=== PATIENT | female | born 1945 | race Caucasian/White ===

== ENCOUNTER 2018-12-28 22:12 | Inpatient (IN) | payer MEDICARE ==
[~2018-12-28] VITALS: Ht 157.5 cm; Wt 79.5 kg
[2018-12-28] MEDS ORDERED: IV RINGERS SOLUTION,LACTATED 1,000 ML IV ONE (22:25)
--- NOTE | 2018-12-28 22:50 | RAD ---
Exam: CT head INDICATION: Slurred speech TECHNIQUE: Sequential axial images through the head were obtained without the administration of IV contrast. Comparisons: None FINDINGS: No focal parenchymal lesion or hemorrhage is identified. There is no midline shift or sulcal effacement. No acute vascular territory infarction is identified. Tamayo-white distinction is preserved. The ventricular system is within normal limits without compression hydrocephalus. The basal cisterns are well maintained. The visualized portions of the paranasal sinuses and mastoid air cells are well-pneumatized. No acute fractures. IMPRESSION: No acute intracranial abnormality. Exposure: One or more of the following in the visualized dose reduction techniques were utilized for this examination: 1. Automated exposure control 2. Adjustment of the MA and/or KV according to patient size Use of iterative of reconstructive technique FOR INTERNAL CODING PURPOSES Critical result: Findings discussed with Kayla Angel RN at 12/28/2018 10:45 PM. RESULT CODE: (C) Electronically signed by: Jaison Mustafa MD (12/28/2018 10:47 PM) [facility]
[2018-12-28 22:55] LABS: HEMOGLOBIN 14.6 g/dL (12.0-15.5); RED BLOOD COUNT 5.01 x10^6/uL (3.50-5.40); RED CELL DISTRIBUTION WIDTH 14.4 % (11.5-14.5)
--- NOTE | 2018-12-28 22:55 | EKG ---
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
[2018-12-28 23:13] LABS: GFR 54.7; POTASSIUM 4.2 mmol/L (3.5-5.1)
[2018-12-28] MEDS ORDERED: ENOXAPARIN ** NOTE DOSE ** SYRINGE SQ ONE (23:45)
--- NOTE | 2018-12-28 23:45 | RAD ---
CHEST PA LATERAL Technique: PA and lateral views of the chest were obtained. Clinical History: A. Fib weakness and dizziness Comparison: None. Findings: The heart and pulmonary vasculature appear within normal limits. There is linear opacities in left lung base likely discoid atelectasis. The lungs are hyperinflated. The pleural margins are clear. Impression: No acute chest process is seen. Electronically signed by: Baltazar Strickland III, MD (12/28/2018 11:42 PM) [facility]
[2018-12-29] MEDS ORDERED: ACETAMINOPHEN 325 MG TABLET PO PRN
[2018-12-29] MEDS ORDERED: ONDANSETRON PF 4 MG/2 ML VIAL. IV PRN
[2018-12-29] MEDS ORDERED: ANTI-COAG MONITOR BY PHARMACY. MC PRN (00:15)
--- NOTE | 2018-12-29 01:10 | ED.ADGEN ---
Past History Past Medical History: A-Fib Past Surgical History: No Surgical History Alcohol Use: None Drug Use: None Adult General Chief Complaint Chief Complaint ".... I had been out on the town....Just taken a hot shower and I was talking on the phone with my friend.. and all sudden I had slurred speech... my friend noticed it... and everyone said I should come in.. It only lasted a few minutes.. I am back to normal now.. I do have a hx of Afib... but I am not on anything for it.... HPI HPI Patient is a 77 year old female who presents with transient episode of slurred speech. Patient states she was talking on the phone when she developed acute surgical procedure which was recognizable by her friend. She does have a history of A. fib for approximately 10 years but does not take any anticoagulants. Patient did state she took 2 aspirins at home before presenting to the emergency department. Patient normally follows with Dr. Mansfield and Dr. De Los Santos. No recent travel, specific ill contacts or changes in diet or meds. Patient has not had previous episodes of TIA or CVAs. Her NIH 0 on arrival to ED. Friend with her advised she was back to normal speech pattern. She does give a history of prior elevation in d-dimer but no pulmonary embolism or DVT was found on workup Review of Systems Review of Systems Constitutional: Denies fever or chills [] Eyes: Denies change in visual acuity, redness, or eye pain [] HENT: Denies nasal congestion or sore throat [] Respiratory: Denies cough or shortness of breath [] Cardiovascular: No additional information not addressed in HPI [] GI: Denies abdominal pain, nausea, vomiting, bloody stools or diarrhea [] : Denies dysuria or hematuria [] Musculoskeletal: Denies back pain or joint pain [] Integument: Denies rash or skin lesions [] Neurologic: Denies headache, focal weakness or sensory changes. Complaints of transient episode of slurred speech Endocrine: Denies polyuria or polydipsia [] All other systems were reviewed and found to be within normal limits, except as documented in this note. Family History Family History Noncontributory Current Medications Current Medications Current Medications Medications (Trade) Dose Ordered Sig/Lon Start Time Stop Time Status Last Admin Dose Admin Lactated Ringer's 1,000 ml @ 1,000 mls/hr Q1H ONCE 12/28/18 22:25 12/28/18 23:24 DC 12/28/18 23:14 1,000 MLS/HR Allergies Allergies Allergies Coded Allergies Type Severity Reaction Last Updated Verified No Known Drug Allergies 12/28/18 No Physical Exam Physical Exam Constitutional: Well developed, well nourished, moderate emotional distress, non-toxic appearance. [] HENT: Normocephalic, atraumatic, bilateral external ears normal, oropharynx moist, no oral exudates, nose normal. [] Eyes: PERRLA, EOMI, conjunctiva normal, no discharge. [] Neck: Normal range of motion, no tenderness, supple, no stridor. [] Cardiovascular: Irregular rate and rhythm ,no murmur [] Lungs & Thorax: Bilateral breath sounds clear to auscultation [] Abdomen: Bowel sounds normal, soft, no tenderness, no masses, no pulsatile masses. [] Skin: Warm, dry, no erythema, no rash. [] Back: No tenderness, no CVA tenderness. [] Extremities: No tenderness, no cyanosis, no clubbing, ROM intact, no edema. [] Neurologic: Alert and oriented X 3, normal motor function, normal sensory function, no focal deficits noted. []DTRs +2 at patella and brachial. No drift. Ambulatory without problems. Psychologic: Affect anxious, judgement normal, mood normal. [] Current Patient Data Vital Signs Vital Signs Date Time Temp Pulse Resp B/P (MAP) Pulse Ox O2 Delivery O2 Flow Rate FiO2 12/28/18 23:30 64 16 110/55 (73) 99 Room Air 12/28/18 22:14 98.0 Lab Results Laboratory Tests Test 12/28/18 22:29 12/28/18 22:30 Glucose (Fingerstick) 133 mg/dL (70-99) H White Blood Count 9.0 x10^3/uL (4.0-11.0) Red Blood Count 5.01 x10^6/uL (3.50-5.40) Hemoglobin 14.6 g/dL (12.0-15.5) Hematocrit 44.0 % (36.0-47.0) Mean Corpuscular Volume 88 fL (79-100) Mean Corpuscular Hemoglobin 29 pg (25-35) Mean Corpuscular Hemoglobin Concent 33 g/dL (31-37) Red Cell Distribution Width 14.4 % (11.5-14.5) Platelet Count 300 x10^3/uL (140-400) Erythrocyte Sedimentation Rate 18 (0-25) Prothrombin Time 9.4 SEC (9.4-11.4) Prothrombin Time INR 0.9 (0.9-1.1) Activated Partial Thromboplast Time 24 SEC (23-33) D-Dimer (Shara) 0.73 mg/L (0.00-0.50) H Sodium Level 142 mmol/L (136-145) Potassium Level 4.2 mmol/L (3.5-5.1) Chloride Level 104 mmol/L (98-107) Carbon Dioxide Level 29 mmol/L (21-32) Anion Gap 9 (6-14) Blood Urea Nitrogen 14 mg/dL (7-20) Creatinine 1.0 mg/dL (0.6-1.0) Estimated GFR (Cockcroft-Gault) 54.7 Glucose Level 112 mg/dL (70-99) H Calcium Level 9.0 mg/dL (8.5-10.1) Troponin I Quantitative < 0.017 ng/mL (0-0.055) EKG EKG I interpretation EKG shows a a A. fib with Vent. rate 75, some nonspecific anterior lateral changes. No findings acute STEMI with contralateral changes Radiology/Procedures Radiology/Procedures [][address] [address] IMAGING REPORT Signed PATIENT: MANNY MARIECOUNT: [id number] : 1945 LOCATION: ER AGE: 73 SEX: F EXAM STATUS: REG ER ORD. PHYSICIAN: NEDRA HAWLEY MD REASON: speech diff, hx afib, not anticoagulated.-(no current deficits) PROCEDURE: CT CODE STROKE HEAD WO Exam: CT head INDICATION: Slurred speech TECHNIQUE: Sequential axial images through the head were obtained without the administration of IV contrast. Comparisons: None FINDINGS: No focal parenchymal lesion or hemorrhage is identified. There is no midline shift or sulcal effacement. No acute vascular territory infarction is identified. Tamayo-white distinction is preserved. The ventricular system is within normal limits without compression hydrocephalus. The basal cisterns are well maintained. The visualized portions of the paranasal sinuses and mastoid air cells are well-pneumatized. No acute fractures. IMPRESSION: No acute intracranial abnormality. Exposure: One or more of the following in the visualized dose reduction techniques were utilized for this examination: 1. Automated exposure control 2. Adjustment of the MA and/or KV according to patient size Use of iterative of reconstructive technique FOR INTERNAL CODING PURPOSES Critical result: Findings discussed with Kayla Angel RN at 12/28/2018 10:45 PM. RESULT CODE: (C) IMAGING REPORT Signed PATIENT: MANNY MARIECOUNT: [id number] : 1945 LOCATION: ER AGE: 73 SEX: F EXAM STATUS: REG ER ORD. PHYSICIAN: NEDRA HAWLEY MD REASON: A-Fib, weakness, dizziness PROCEDURE: CHEST PA & LATERAL CHEST PA LATERAL Technique: PA and lateral views of the chest were obtained. Clinical History: A. Fib weakness and dizziness Comparison: None. Findings: The heart and pulmonary vasculature appear within normal limits. There is linear opacities in left lung base likely discoid atelectasis. The lungs are hyperinflated. The pleural margins are clear. Impression: No acute chest process is seen. Electronically signed by: Evelyn Garza III, MD (12/28/2018 11:42 PM) [facility] DICTATED AND SIGNED BY: EVELYN GARZA III, MD DATE: 12/28/18 2842 CC: NEDRA HAWLEY MD; CHANDANA MABRY MD ~ Course & Med Decision Making Course & Med Decision Making Pertinent Labs and Imaging studies reviewed. (See chart for details) Discussed with pt. and friend risk of possible use to TPA for treatment of CVA. Currently not a candidate with normal neuro exam. Discussed presentation, testing and tx. plan with Dr. Jacobo- will admit for neuro and cardiology consult. [] Final Impression Final Impression 1. TIA 2. A. fib 3. Mild elevation in d-dimer 0.79. [] Dragon Disclaimer Dragon Disclaimer This electronic medical record was generated, in whole or in part, using a voice recognition dictation system. Dragon Disclaimer This chart was dictated in whole or in part using Voice Recognition software in a busy, high-work load, and often noisy Emergency Department environment. It may contain unintended and wholly unrecognized errors or omissions. NEDRA HAWLEY MD Dec 29, 2018 01:10
[2018-12-29 01:30] VITALS: BP 152/92
[2018-12-29 05:29] VITALS: BP 135/68
[2018-12-29 07:11] LABS: BASO # 0.1 x10^3/uL (0.0-0.2); BASO % 1 % (0-3); EOS # 0.4 x10^3/uL (0.0-0.7); EOS % 5 % (0-3); HEMATOCRIT 40.5 % (36.0-47.0); HEMOGLOBIN 13.3 g/dL (12.0-15.5); LYMPH # 2.8 x10^3/uL (1.0-4.8); LYMPH % 33 % (24-48); MEAN CORPUSCULAR HEMOGLOBIN 29 pg (25-35); MEAN CORPUSCULAR HGB CONC 33 g/dL (31-37); MEAN CORPUSCULAR VOLUME 87 fL (79-100); MONO # 0.9 x10^3/uL (0.0-1.1); MONO % 11 % (0-9); NEUT # 4.3 x10^3uL (1.8-7.7); NEUT % 50 % (31-73); PLATELET COUNT 257 x10^3/uL (140-400); RED BLOOD COUNT 4.64 x10^6/uL (3.50-5.40); RED CELL DISTRIBUTION WIDTH 14.3 % (11.5-14.5); WHITE BLOOD COUNT 8.5 x10^3/uL (4.0-11.0)
[2018-12-29 07:21] LABS: CALCIUM 8.3 mg/dL (8.5-10.1); CREATININE 0.8 mg/dL (0.6-1.0); GFR 70.7; POTASSIUM 4.1 mmol/L (3.5-5.1)
[2018-12-29] MEDS: ASPIRIN 81 MG TAB.CHEW PO SCH (08:31)
[2018-12-29] MEDS ORDERED: ENOXAPARIN ** NOTE DOSE ** SYRINGE SQ SCH (09:00)
[2018-12-29 10:45] LABS: THYROID STIM HORMONE (TSH) 8.304 uIU/mL (0.358-3.740)
[2018-12-29 11:41] VITALS: BP 161/71
--- NOTE | 2018-12-29 12:15 | PDOC2 ---
CONSULT Date of Admission DATE: 12/29/18 TIME: 12:15 Reason for Consult: Atrial fibrillation Referring Physician: Dr. Jacobo Chief Complaint Slurred speech Source: Chart review, Patient Problem List Problems Medical Problems: (1) TIA (transient ischemic attack) Status: Acute (2) Weakness Status: Acute History of Present Illness 73-year-old female with history of paroxysmal atrial fibrillation diagnosed several years ago followed by [facility] cardiology presented with sudden onset slurred speech that resolved after she took aspirin. She denied any loss of function as such but she also denied any chest pain, orthopnea/PND, palpitations or syncope. She was apparently on Coumadin for her atrial fibrillation several years ago that she stopped taking for uncertain reasons. Past Medical History Paroxysmal atrial fibrillation Past Surgical History: No pertinent history Family History Negative for premature coronary artery disease Social History Patient denied any smoking alcohol or drug use Current Medications Current Medications Lactated Ringer's 1,000 ml @ 1,000 mls/hr Q1H ONCE IV Last administered on 12/28/18at 23:14; Start 12/28/18 at 22:25; Stop 12/28/18 at 23:24; Status DC Enoxaparin Sodium (Lovenox 80mg Syringe) 80 mg 1X ONCE SQ Last administered on 12/28/18at 23:58; Start 12/28/18 at 23:45; Stop 12/28/18 at 23:46; Status DC Ondansetron HCl (Zofran) 4 mg PRN Q4HRS PRN IV NAUSEA/VOMITING; Start 12/29/18 at 00:00; Stop 12/29/18 at 23:59 Acetaminophen (Tylenol) 650 mg PRN Q4HRS PRN PO FEVER Last administered on 12/29/18at 08:31; Start 12/29/18 at 00:00; Stop 12/29/18 at 23:59 Aspirin (Children'S Aspirin) 81 mg DAILY PO Last administered on 12/29/18at 08:31; Start 12/29/18 at 09:00 Enoxaparin Sodium (Lovenox 80mg Syringe) 80 mg BID SQ Last administered on 12/29/18at 08:32; Start 12/29/18 at 09:00 Info (Anti-Coagulation Monitoring By Pharmacy) 1 each PRN DAILY PRN MC SEE COMMENTS; Start 12/29/18 at 00:15 Allergies: Coded Allergies: No Known Drug Allergies (Unverified , 12/28/18) PSYCHOLOGICAL ROS: No: Hallucinations Eyes: No: Loss of vision HEENT: No: Epistaxis Respiratory: No: Hemoptysis Cardiovascular: No: Chest Pain Gastrointestinal: No: Vomiting, Diarrhea Genitourinary: No: Henaturia Neurological: YES: Speech Problems; No: Seizures Skin: No: Rash General: Alert, Oriented X3 HEENT: Atraumatic, PERRLA Lungs: Clear to auscultation Heart: Other (heart rate irregular) Abdomen: Soft, No tenderness Extremities: No edema Psych/Mental Status: Mood NL VITALS Vital Signs Date Time Temp Pulse Resp B/P (MAP) Pulse Ox O2 Delivery O2 Flow Rate FiO2 12/29/18 11:41 97.7 73 20 161/71 (101) 96 Room Air Labs Laboratory Tests Test 12/28/18 22:29 12/28/18 22:30 12/29/18 06:50 Glucose (Fingerstick) 133 mg/dL (70-99) White Blood Count 9.0 x10^3/uL (4.0-11.0) 8.5 x10^3/uL (4.0-11.0) Red Blood Count 5.01 x10^6/uL (3.50-5.40) 4.64 x10^6/uL (3.50-5.40) Hemoglobin 14.6 g/dL (12.0-15.5) 13.3 g/dL (12.0-15.5) Hematocrit 44.0 % (36.0-47.0) 40.5 % (36.0-47.0) Mean Corpuscular Volume 88 fL (79-100) 87 fL (79-100) Mean Corpuscular Hemoglobin 29 pg (25-35) 29 pg (25-35) Mean Corpuscular Hemoglobin Concent 33 g/dL (31-37) 33 g/dL (31-37) Red Cell Distribution Width 14.4 % (11.5-14.5) 14.3 % (11.5-14.5) Platelet Count 300 x10^3/uL (140-400) 257 x10^3/uL (140-400) Erythrocyte Sedimentation Rate 18 (0-25) Prothrombin Time 9.4 SEC (9.4-11.4) Prothromb Time International Ratio 0.9 (0.9-1.1) Activated Partial Thromboplast Time 24 SEC (23-33) D-Dimer (Shara) 0.73 mg/L (0.00-0.50) Sodium Level 142 mmol/L (136-145) 143 mmol/L (136-145) Potassium Level 4.2 mmol/L (3.5-5.1) 4.1 mmol/L (3.5-5.1) Chloride Level 104 mmol/L (98-107) 110 mmol/L (98-107) Carbon Dioxide Level 29 mmol/L (21-32) 26 mmol/L (21-32) Anion Gap 9 (6-14) 7 (6-14) Blood Urea Nitrogen 14 mg/dL (7-20) 11 mg/dL (7-20) Creatinine 1.0 mg/dL (0.6-1.0) 0.8 mg/dL (0.6-1.0) Estimated GFR (Cockcroft-Gault) 54.7 70.7 Glucose Level 112 mg/dL (70-99) 110 mg/dL (70-99) Calcium Level 9.0 mg/dL (8.5-10.1) 8.3 mg/dL (8.5-10.1) Troponin I Quantitative < 0.017 ng/mL (0-0.055) Triglycerides Level 168 mg/dL (0-150) Cholesterol Level 212 mg/dL (0-200) LDL Cholesterol, Calculated 140 mg/dL (0-100) VLDL Cholesterol, Calculated 33 mg/dL (0-40) Non-HDL Cholesterol Calculated 173 mg/dL (0-129) HDL Cholesterol 39 mg/dL (40-60) Cholesterol/HDL Ratio 5.0 Thyroid Stimulating Hormone (TSH) 8.304 uIU/mL (0.358-3.740) Neutrophils (%) (Auto) 50 % (31-73) Lymphocytes (%) (Auto) 33 % (24-48) Monocytes (%) (Auto) 11 % (0-9) Eosinophils (%) (Auto) 5 % (0-3) Basophils (%) (Auto) 1 % (0-3) Neutrophils # (Auto) 4.3 x10^3uL (1.8-7.7) Lymphocytes # (Auto) 2.8 x10^3/uL (1.0-4.8) Monocytes # (Auto) 0.9 x10^3/uL (0.0-1.1) Eosinophils # (Auto) 0.4 x10^3/uL (0.0-0.7) Basophils # (Auto) 0.1 x10^3/uL (0.0-0.2) Assessment/Plan 1. Atrial fibrillation: Heart rate very well controlled without any rate lowering medications. Start eliquis for stroke prophylaxis and consider outpatient cardioversion in 3-4 weeks. Check 2-D echo to assess LV function and Lexiscan nuclear stress test to rule out ischemia possibly as an outpatient. 2. TIA: Probably secondary to atrial fibrillation. CT scan of head did not show any acute intracranial process. Carotid arterial duplex scan did not show any significant stenosis. Consider neurology consultation. Thank you for your consult. NURYS CARDENAS MD Dec 29, 2018 12:15
--- NOTE | 2018-12-29 14:01 | RAD ---
EXAM: Bilateral lower extremity venous Doppler. HISTORY: Bilateral lower extremity pain/swelling. Elevated d-dimer. COMPARISON: None. FINDINGS: Grayscale and Doppler analysis of the both lower extremity deep venous systems was performed with graded compression and augmentation. The common femoral, greater saphenous, superficial femoral, popliteal and calf veins were assessed. There is no evidence of deep venous thrombosis. IMPRESSION: 1. No evidence of deep venous thrombosis. Electronically signed by: Lisy Cruz MD (12/29/2018 1:58 PM) [facility]
--- NOTE | 2018-12-29 14:48 | RAD ---
EXAM: Carotid Doppler sonogram. HISTORY: Transient ischemic attack. TECHNIQUE: Tamayo scale and color Doppler sonographic evaluation of the neck with spectral waveform analysis was performed and static images are submitted for review. FINDINGS: The peak systolic velocity within the right common carotid artery is 76 cm/sec. The peak systolic velocity within the right internal carotid artery is 93 cm/sec and the end diastolic velocity within the right internal carotid artery is 28 cm/sec. The right ICA/CCA ratio is 1.22. The peak systolic velocity within the left common carotid artery is 95 cm/sec. The peak systolic velocity within the left internal carotid artery is 85 cm/sec and the end diastolic velocity within the left internal carotid artery is 30 cm/sec. The left ICA/CCA ratio is 0.89. There is normal antegrade flow within both vertebral arteries. IMPRESSION: No Doppler evidence of hemodynamically significant stenosis within the carotid or vertebral arteries. PQRS Compliance Statement - Stenosis calculations for CT, MR and conventional angiography are based upon measurement of the distal ICA diameter in accordance with the NASCET methodology. Stenosis calculations for carotid ultrasound studies are derived from validated velocity criteria which are known to correlate with the NASCET methodology. Electronically signed by: Melania Gonzalez MD (12/29/2018 2:46 PM) [facility]
[2018-12-29 15:17] VITALS: BP 125/73
--- NOTE | 2018-12-29 19:01 | HP ---
ADMIT DATE: 12/28/2018 HISTORY OF PRESENT ILLNESS: The patient is a 73-year-old female patient who presented with a transient episode of slurring of her speech. She stated that she was talking on the phone when she developed acute slurring of her speech. It was recognizable by her friend. She does have a history of atrial fibrillation for approximately 10 years. She has not been taking any anticoagulant. She stated that she took 2 aspirins at home before she presented to the Emergency Room. She normally follows with Dr. Irizarry and Dr. Stoner. Denied any recent travel, specific ill contact or change in her diet or medication. She has never had any episode of TIA or CVA. Her NIH score was only 0 on arrival to the Emergency Department. Her friend with her advised her to come to the Emergency Room. She does have a history of elevation of D-dimer before, but no pulmonary embolism or DVT was found on her workup. She was evaluated in the Emergency Room and her EKG showed that she was in AFib with controlled heart rate, was 75 beats per minute with nonspecific anterolateral changes and no finding of acute ST segment elevation or with contralateral changes. She had a CT scan of the head, which showed that she has no focal parenchymal lesion or hemorrhage identified. There is no midline shift or sulcal effacement, no acute vascular territory infarction identified. Swift white distinction is preserved. The ventricular system is within normal limits without compression hydrocephalus. The basal cisterns are well maintained. Visualized portion of the paranasal sinuses and mastoid air cells are well pneumatized. No acute fracture. The patient was admitted to consult the Cardiology as well as Neurology team. PAST MEDICAL HISTORY: Significant for atrial fibrillation. She stated that she was told that she has hyperlipidemia and possible PFO. PAST SURGICAL HISTORY: Significant for tonsillectomy, total abdominal hysterectomy, bilateral salpingo-oophorectomy, left rotator cuff repair and left heart catheterization. ALLERGIES: She has no known drug allergies. MEDICATIONS: She is currently on no medication by prescription or otherwise. FAMILY HISTORY: She has 1 younger sister who is healthy. Her father at the age of 90. Mother at age of 47 because of stomach cancer. SOCIAL HISTORY: She is and she has 3 sons and 2 daughters. She never smoked, never drank alcohol, never used any drugs. 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 PHYSICAL EXAMINATION: GENERAL: On arrival to the Emergency Room, the patient looked well and was clearly in no apparent respiratory distress, somewhat pale, no jaundice, cyanosis, or thyromegaly. No jugular venous distension. No lower limb edema. VITAL SIGNS: Heart rate on arrival was 101, regularly irregular, blood pressure was 138/75, temperature was 98, respiratory rate 20, and oxygen saturation was 98% on room air. HEAD, EYES, EARS, NOSE AND THROAT: Showed normocephalic, atraumatic. NECK: Supple. HEART: Showed normal first and second heart sounds. No gallop or murmur. CHEST: Clear to auscultation. No crepitation or rhonchi. ABDOMEN: Distended, soft, nontender. NEUROLOGIC: She was awake, alert, responding appropriately. All cranial nerves intact. She moves extremities without difficulty. She ambulates without assistance or assistive devices. By the time she arrived to the Emergency Room, her slurring of speech has completely resolved. LABORATORY DIAGNOSTIC DATA: Her lab work on arrival showed that her serum sodium was 142, potassium 4.2, chloride 104, bicarbonate 29, anion gap of 9, BUN 14, creatinine 1, estimated GFR was 54 mL per minute. Her glucose was 112, calcium was 9. Her white cell count was 9000, hemoglobin 14.6, hematocrit 44, MCV 88 and platelet count of 300,000. Her prothrombin time, INR and aPTT were normal. Her D-dimer was slightly elevated at 0.73. Her first set of cardiac enzymes showed troponin to be less than 0.017. She did have also her fasting lipid profile, which showed that her serum triglycerides were 168, total cholesterol was 212, LDL cholesterol 140, VLDL was 33, HDL was 39, the ratio 5. TSH was high at 8.304. She did have a CT scan of the head, which basically showed that there is no focal parenchymal lesion or hemorrhage identified. There is no midline shift or sulcal effacement, no acute vascular territory infarction identified. Swift white distinction is preserved. The ventricular system is within normal limits without compression hydrocephalus. The basal cisterns are well maintained. The visualized portions of the paranasal sinuses and mastoid air cells are well pneumatized. No acute fracture. She has had a chest x-ray, which showed that the heart and pulmonary vasculature appeared within normal limits. There is linear opacities in the left lung base, likely discoid atelectasis. The lungs are hyperinflated. The pleural margins are clear. PLAN: The patient was admitted to do 2 more sets of cardiac enzyme, to consult the pigment pusher as well as the neurologist and also to arrange for her to have a carotid Doppler ultrasound and bilateral lower extremity venous Doppler ultrasound. URMILA FLEMING MD DR: ERLIN/kirt JOB#: [id number] / [id number]
[2018-12-29 20:02] VITALS: BP 134/69
[2018-12-29] MEDS: APIXABAN 5 MG TABLET. PO SCH (20:21)
[2018-12-29 23:26] VITALS: BP 145/69
[2018-12-30 05:32] VITALS: BP 128/72
[2018-12-30 06:54] LABS: CALCIUM 8.6 mg/dL (8.5-10.1); CREATININE 0.8 mg/dL (0.6-1.0); GFR 70.7; POTASSIUM 4.2 mmol/L (3.5-5.1)
[2018-12-30] MEDS: ASPIRIN 81 MG TAB.CHEW PO SCH (07:46)
[2018-12-30] MEDS: APIXABAN 5 MG TABLET. PO SCH (07:47)
[2018-12-30] MEDS ORDERED: METOPROLOL TART IMMED RELEASE 25 MG TABLET PO SCH (09:00)
--- NOTE | 2018-12-30 09:08 | PDOC ---
CARDIO Progress Notes Date & Time Date of Service DATE: 12/30/18 TIME: 09:03 Time of Evaluation 09:03 Subjective Notes speech normal. No chest pain, palpitations, shortness of breath Vitals Vitals Vital Signs Date Time Temp Pulse Resp B/P (MAP) Pulse Ox O2 Delivery O2 Flow Rate FiO2 12/30/18 08:10 Room Air 12/30/18 05:32 97.6 76 20 128/72 (90) 98 Weight Weight [ ] Input and Output I.O. Intake and Output 12/30/18 07:00 Intake Total 840 ml Balance 840 ml Intake Oral 840 ml # Voids 3 # Bowel Movements 1 Laboratory Labs Laboratory Tests Test 12/28/18 22:29 12/28/18 22:30 12/29/18 06:50 12/30/18 05:55 Glucose (Fingerstick) 133 mg/dL (70-99) White Blood Count 9.0 x10^3/uL (4.0-11.0) 8.5 x10^3/uL (4.0-11.0) Red Blood Count 5.01 x10^6/uL (3.50-5.40) 4.64 x10^6/uL (3.50-5.40) Hemoglobin 14.6 g/dL (12.0-15.5) 13.3 g/dL (12.0-15.5) Hematocrit 44.0 % (36.0-47.0) 40.5 % (36.0-47.0) Mean Corpuscular Volume 88 fL (79-100) 87 fL (79-100) Mean Corpuscular Hemoglobin 29 pg (25-35) 29 pg (25-35) Mean Corpuscular Hemoglobin Concent 33 g/dL (31-37) 33 g/dL (31-37) Red Cell Distribution Width 14.4 % (11.5-14.5) 14.3 % (11.5-14.5) Platelet Count 300 x10^3/uL (140-400) 257 x10^3/uL (140-400) Erythrocyte Sedimentation Rate 18 (0-25) Prothrombin Time 9.4 SEC (9.4-11.4) Prothromb Time International Ratio 0.9 (0.9-1.1) Activated Partial Thromboplast Time 24 SEC (23-33) D-Dimer (Shara) 0.73 mg/L (0.00-0.50) Sodium Level 142 mmol/L (136-145) 143 mmol/L (136-145) 141 mmol/L (136-145) Potassium Level 4.2 mmol/L (3.5-5.1) 4.1 mmol/L (3.5-5.1) 4.2 mmol/L (3.5-5.1) Chloride Level 104 mmol/L (98-107) 110 mmol/L (98-107) 108 mmol/L (98-107) Carbon Dioxide Level 29 mmol/L (21-32) 26 mmol/L (21-32) 24 mmol/L (21-32) Anion Gap 9 (6-14) 7 (6-14) 9 (6-14) Blood Urea Nitrogen 14 mg/dL (7-20) 11 mg/dL (7-20) 10 mg/dL (7-20) Creatinine 1.0 mg/dL (0.6-1.0) 0.8 mg/dL (0.6-1.0) 0.8 mg/dL (0.6-1.0) Estimated GFR (Cockcroft-Gault) 54.7 70.7 70.7 Glucose Level 112 mg/dL (70-99) 110 mg/dL (70-99) 109 mg/dL (70-99) Calcium Level 9.0 mg/dL (8.5-10.1) 8.3 mg/dL (8.5-10.1) 8.6 mg/dL (8.5-10.1) Troponin I Quantitative < 0.017 ng/mL (0-0.055) Triglycerides Level 168 mg/dL (0-150) Cholesterol Level 212 mg/dL (0-200) LDL Cholesterol, Calculated 140 mg/dL (0-100) VLDL Cholesterol, Calculated 33 mg/dL (0-40) Non-HDL Cholesterol Calculated 173 mg/dL (0-129) HDL Cholesterol 39 mg/dL (40-60) Cholesterol/HDL Ratio 5.0 Thyroid Stimulating Hormone (TSH) 8.304 uIU/mL (0.358-3.740) Neutrophils (%) (Auto) 50 % (31-73) Lymphocytes (%) (Auto) 33 % (24-48) Monocytes (%) (Auto) 11 % (0-9) Eosinophils (%) (Auto) 5 % (0-3) Basophils (%) (Auto) 1 % (0-3) Neutrophils # (Auto) 4.3 x10^3uL (1.8-7.7) Lymphocytes # (Auto) 2.8 x10^3/uL (1.0-4.8) Monocytes # (Auto) 0.9 x10^3/uL (0.0-1.1) Eosinophils # (Auto) 0.4 x10^3/uL (0.0-0.7) Basophils # (Auto) 0.1 x10^3/uL (0.0-0.2) Physical Exams HEENT: Neck Supple W Full Motion Chest: Symmetric Lungs: Clear to Auscultation Heart: S1S2, irregularly irregular (AFIB) Abdomen: Soft N/T Extremities: No Edema Neurology: alert, oriented, follow commands Assessment Assessment 1. AFIB, new finding. Rate well-controlled without therapy. HR in low 50's overnight 2. Possible TIA; symptoms resoled. CT negative for acute changes. Carotid arterial duplex scan did not show any significant stenosis. 3. Dyslipidemia 4. Hypothyroidism; as per PCP Recommendations Continue Eliquis for stroke prophylaxis Probable outpatient CV in 3-4 weeks Echo to assess LV systolic function Discussed adding statin therapy. Patient would like to defer at this time and try diet and exercise for now Outpatient MPI GUICHO LEWIS APRN Dec 30, 2018 09:08
[2018-12-30 11:02] VITALS: BP 130/79
[2018-12-30] MEDS ORDERED: APIX5TAB3 PO (11:33)
--- NOTE | 2018-12-30 11:54 | DS ---
DATE OF DISCHARGE: 12/30/2018 HOSPITAL COURSE: The patient is a 73-year-old female patient who came with an episode of slurring of her speech that has eventually resolved. Her CT scan and carotid Doppler ultrasound were negative and showed no significant internal carotid artery stenosis and therefore she was started on Eliquis. She is known to have atrial fibrillation with controlled heart rate and a decision was made to discharge her home to follow with her primary care physician. She was also found to have hyperlipidemia and hypothyroidism. However, the patient wants to discussed the finding with her primary care physician before she can be started on Synthroid and/or lipid lowering agent. PHYSICAL EXAMINATION: GENERAL: On examining her, she looked well and was clearly in no apparent respiratory distress. No pallor, jaundice, cyanosis or thyromegaly. No jugular venous distension. No lower limb edema. VITAL SIGNS: Her heart rate was 90, blood pressure was 130/79, temperature was 98.2, respiratory rate 20, and oxygen saturation was 96%. The rest of clinical exam is stable. LABORATORY DATA: Showed a white cell count of 8500, hemoglobin 13, hematocrit 40, MCV 87, and platelet count 257,000. Her chemistry showed a serum sodium 141, potassium 4.2, chloride 108, bicarbonate 24, anion gap of 9, BUN 10, creatinine 0.8, estimated GFR was 70 mL per minute. Her glucose was 109, calcium was 8.6. Serum triglycerides were 168, total cholesterol 212, LDL was 140, VLDL was 33, HDL cholesterol at 39 and ratio was 5. Her TSH is slightly high at 8.304. I did order T3, T4, free T4, the results of which is still pending at the time of this dictation. The patient was discharged home to continue on Eliquis 5 mg twice a day. She was given copies of her lab work to discuss the finding with her primary care physician to be started on Synthroid and cholesterol lowering agent. FINAL DISCHARGE DIAGNOSES: 1. Atrial fibrillation, rate controlled. 2. Possible transient ischemic attack, her symptoms have resolved. Her CT scan of the head and bilateral carotid Doppler ultrasound of both negative. She was started on Eliquis 5 mg twice a day. 3. Dyslipidemia. The patient is reluctant to start on lipid lowering agent. 4. Hypothyroidism. The patient wants to discuss the finding with her primary care physician. URMILA FLEMING MD DR: James JOB#: [id number] / [id number]
--- NOTE | 2018-12-30 14:17 | PN ---
DATE: 12/29/2018 SUBJECTIVE: The patient is a 73-year-old female patient who was admitted with a transient episode of slurring of her speech. She is known to have chronic atrial fibrillation, rate controlled but not anticoagulated. There was suspicion that she might have TIA and therefore, she was admitted. Her first set of cardiac enzyme was negative. She was seen in consultation by the fuel cell repairer. We did consult also neurologist. The fuel cell repairer recommended that she should go on Eliquis and did not require any medication to lower her heart rate and to start Eliquis for stroke prophylaxis and to consider outpatient cardioversion in 3-4 weeks and the echo to ____ Lexiscan nuclear stress test to rule out ischemia and possibly as an outpatient, TIA, probably secondary to atrial fibrillation. CT scan of the head did not show any acute intracranial process and her lab work showed that her TSH was high. PHYSICAL EXAMINATION: GENERAL: When I examined her this afternoon, she looked well and was clearly in no apparent respiratory distress, pale, but no jaundice, cyanosis, or thyromegaly. No jugular venous distension. No limb edema. VITAL SIGNS: Her heart rate was 73, blood pressure was 161/71, temperature was 97.7, respiratory rate was 20, and oxygen saturation was 96%. The rest of clinical exam is stable. LABORATORY DATA: Her lab work this morning showed a serum sodium 143, potassium 4.1, chloride 110, bicarbonate 26, anion gap of 7, BUN 11, creatinine 0.8, estimated GFR was 71 mL per minute. Her glucose 110, calcium was 8.3. Her white cell count was 8500, hemoglobin 13, hematocrit 40, MCV 87 and platelet count of 257,000. Her bilateral lower extremity venous Doppler ultrasound showed no evidence of deep vein thrombosis and her bilateral carotid Doppler ultrasound showed no Doppler evidence of hemodynamically significant stenosis within the carotid or vertebral arteries. PLAN: To await the Neurology evaluation. I will check her T3, T4, free T4, her TSH is high and start her perhaps on Lipitor as her cholesterol was high. URMILA FLEMING MD DR: ERLIN/kirt JOB#: [id number] / [id number]
--- NOTE | 2018-12-30 14:29 | CONS ---
DATE OF CONSULTATION: NEUROLOGY CONSULTATION REFERRING PHYSICIAN: Dr. Jacobo. REASON FOR CONSULTATION: Slurred speech, rule out TIA. HISTORY OF PRESENT ILLNESS: This is a 73-year-old right-handed female, who has had a history of paroxysmal atrial fibrillation, was admitted through Emergency Room after she presented with a sudden onset of slurred speech. According to the patient, she was on phone talking to friends and all of a sudden her speech became slurred, lasted few minutes. The patient was very concerned and shaky. She felt weak all over. Therefore, she took 2 tablets of aspirin 325 mg; however, the patient denies any chest pain, shortness of breath or palpitation, dysphagia, dizziness, nausea or vomiting. The patient stated she has had longstanding history of "irregular heartbeat;" however, she took warfarin periodically until last probably 1 or 2 years she took Xarelto for few months because she discontinued. She has been followed by a publicity agent at [facility]. Currently, the patient stated she has been back to her basic health status. She denies diplopia, dysphagia, numbness or paresthesia. PAST MEDICAL HISTORY: Significant for paroxysmal atrial fibrillations, hyperlipidemia and asthma. PAST SURGICAL HISTORY: Significant for tonsillectomy, hysterectomy and left rotator cuff repair. SOCIAL HISTORY: The patient is single. She denies smoking, alcohol drinking, or illicit drug use. FAMILY HISTORY: Noncontributory. CURRENT HOME MEDICATIONS: Aspirin 81 mg daily, Tylenol p.r.n. ALLERGIES: No known drug allergies. REVIEW OF SYSTEMS: A 10-point review of system was performed as mentioned above in history of present illness. PHYSICAL EXAMINATION: GENERAL: Well-developed, well-nourished female, not in acute distress. VITAL SIGNS: Blood pressure 125/73, respiratory rate 20, pulse is 78 and regular, temperature 98, oxygen saturation 95% on room air. HEENT: Normocephalic, atraumatic, otherwise unremarkable. NECK: Supple. Negative for carotid bruit, lymphadenopathy or thyromegaly. LUNGS: Clear to A and P. CARDIOVASCULAR: Irregularly irregular rhythm, normal S1 and S2. There is no S3, S4 or murmur. ABDOMEN: Soft. Bowel sounds positive. EXTREMITIES: Negative for cyanosis, clubbing or pitting edema. NEUROLOGICAL EXAMINATION: Mental status: The patient is alert and oriented x 3. Speech is fluent. There is no language dysfunction. Memory, judgment, and abstract thinking are normal. The patient denies hallucination or delusion. CRANIAL NERVES: Visual constantino are full. The pupils are reactive to light and accommodation. The extraocular movements are intact. There is no nystagmus. There is no facial, jose enrique, or sensory deficit. Hearing is intact bilaterally. The palate is elevated symmetrically. Sternocleidomastoid muscles are powerful bilaterally. The patient shrugs her shoulders symmetrically, protrudes her tongue without fasciculation or atrophy. Motor examination: No focal muscle bulk wasting. The tone is normal. The strength is 5/5 throughout. Sensory examination: Revealed normal pinprick, light touch, vibratory and position senses. Deep tendon reflexes: Symmetric and active without pathology responses. Gait and coordination were normal. DIAGNOSTIC DATA: Initial nonenhanced head CT scan revealed no evidence of acute intracranial process. Carotid Doppler study revealed no evidence of significant stenosis and chest x-ray revealed no acute cardiopulmonary process and venous ultrasound revealed no evidence of DVTs. EKG: Revealed irregular rhythm consistent with atrial fibrillation with moderate ventricular response. IMPRESSION: 1. Sudden onset of slurred speech and generalized weakness, probably represent transient ischemic attack induced by atrial fibrillation. 2. History of chronic and paroxysmal atrial fibrillations. RECOMMENDATIONS: 1. Continue with current management including baby aspirin and Eliquis. 2. Followup publicity agent with recommendation including echocardiogram, stress test and Holter monitoring. Currently, the patient is neurologically stable. M Allegra CUMMINS MD DR: MAURISIO/kirt JOB#: [id number] / [id number]
[2018-12-30 19:07] LABS: THYROXINE 5.8 ug/dL (4.5-12.0)
[2018-12-30] MEDS ORDERED: ATORVASTATIN CALCIUM 20 MG TABLET PO SCH (21:00)
--- NOTE | 2018-12-31 03:40 | PN ---
DATE: SUBJECTIVE: The patient denies any new medical or neurological complaints. She stated she is resting comfortably and she has not any chest pain, shortness of breath or palpitation, dysarthria or dysphagia. OBJECTIVE: GENERAL: Well-developed, well-nourished female, not in acute distress. VITAL SIGNS: Blood pressure 128/72, respiratory rate 20, pulse is 76 irregular, temperature 97.6, oxygen saturation 98% on room air. HEENT: Normocephalic, atraumatic, otherwise unremarkable. NECK: Supple. Negative for carotid bruit, lymphadenopathy or thyromegaly. LUNGS: Clear to A and P. CARDIOVASCULAR: Irregular irregular rhythm, normal S1, S2. ABDOMEN: Soft. Bowel sounds positive. EXTREMITIES: Negative for cyanosis, clubbing or pitting edema. NEUROLOGICAL EXAM: Normal mental status and intact cranial nerves. There is no focal motor or sensory deficit. Deep tendon reflexes were asymmetric and hypoactive without pathology responses. Gait and coordination are normal. IMPRESSION: 1. Possible transient ischemic attack -- resolved, probably due to underlying cardiac arrhythmia - atrial fibrillation. 2. Multiple medical problems include atrial fibrillation, hypertension, hyperlipidemia, hypothyroidism. RECOMMENDATIONS: Continue with current management and follow Cardiology recommendations. The patient is neurologically stable. M Allegra CUMMINS MD DR: MAURISIO/kirt JOB#: [id number] / [id number]
== END 2018-12-30 12:06 | disposition home or self-care (01) | DRG 69 ==
LOC: ER 22:12 → 1 SOUTH 23:40
PROVIDERS: ADMIT Internal Medicine; ATTEND Internal Medicine
DX: G45.9 Transient cerebral ischemic attack, unspecified (principal); I48.20 Chronic atrial fibrillation, unspecified; I48.0 Paroxysmal atrial fibrillation; E78.5 Hyperlipidemia, unspecified; J45.909 Unspecified asthma, uncomplicated; E03.9 Hypothyroidism, unspecified; I10 Essential (primary) hypertension; Z90.710 Acquired absence of both cervix and uterus; Z90.79 Acquired absence of other genital organ(s); Z90.722 Acquired absence of ovaries, bilateral; Z80.0 Family history of malignant neoplasm of digestive organs
CPT/HCPCS: 36415; 70450; 71046; 80048; 80061; 82947; 84436; 84439; 84443; 84480; 84484; 85025; 85027; 85379; 85610; 85651; 85730; 93005; 93880; 93970; 96360; 96372; J1650; J7120; 99285-25

== ENCOUNTER 2019-07-20 07:23 | Emergency (ER) | payer MEDICARE ==
[~2019-07-20] VITALS: Ht 157.5 cm; Wt 80.8 kg
[2019-07-20 07:23] VITALS: BP 135/77
[~2019-07-20 07:23] MED LIST: APIX5TAB3 PO
[2019-07-20] MEDS ORDERED: IV NORMAL SALINE 1,000ML 1,000 ML IV ONE (07:45)
[2019-07-20] MEDS ORDERED: ORPHENADRINE CITRATE 60 MG/2 ML VIAL. IM ONE (07:45)
[2019-07-20] MEDS ORDERED: KETOROLAC 30 MG/ML VIAL. IV ONE (07:45)
[2019-07-20 08:03] LABS: BASO % 0 % (0-3); EOS # 1.4 x10^3/uL (0.0-0.7); EOS % 16 % (0-3); HEMATOCRIT 42.2 % (36.0-47.0); LYMPH # 2.3 x10^3/uL (1.0-4.8); LYMPH % 27 % (24-48); MEAN CORPUSCULAR HEMOGLOBIN 30 pg (25-35); MEAN CORPUSCULAR HGB CONC 33 g/dL (31-37); MEAN CORPUSCULAR VOLUME 90 fL (79-100); MONO # 0.7 x10^3/uL (0.0-1.1); MONO % 8 % (0-9); NEUT # 4.2 x10^3uL (1.8-7.7); NEUT % 48 % (31-73); PLATELET COUNT 306 x10^3/uL (140-400); RED BLOOD COUNT 4.71 x10^6/uL (3.50-5.40); WHITE BLOOD COUNT 8.7 x10^3/uL (4.0-11.0)
--- NOTE | 2019-07-20 08:08 | RAD ---
Lumbar spine 3 views. HISTORY: Back pain radiating into legs 3 views were taken lumbar spine. There is disc space narrowing at L5-S1. There is facet arthritis at L4-5 and L5-S1. There is minimal spondylolisthesis at L4-5. There is no acute fracture. There is moderate stool in the colon. IMPRESSION: 1. Degenerative facet arthritis in the lower lumbar spine. 2. Mild spondylolisthesis L4-5. 3. Disc space narrowing L5-S1. 4. No acute fracture. Electronically signed by: Fredo Nickerson MD (07/20/2019 8:05 AM) [id number]
[2019-07-20 08:09] LABS: CALCIUM 9.2 mg/dL (8.5-10.1); GFR 54.7; POTASSIUM 4.1 mmol/L (3.5-5.1)
[2019-07-20 08:15] LABS: ALBUMIN 3.6 g/dL (3.4-5.0); ALBUMIN/GLOBULIN RATIO 0.9 (1.0-1.7); C REACTIVE PROTEIN 5.4 mg/L (0-3.3); TOTAL BILIRUBIN 0.3 mg/dL (0.2-1.0); TOTAL PROTEIN 7.6 g/dL (6.4-8.2)
[2019-07-20 08:22] LABS: BACTERIA,URINE FEW /HPF (0-FEW); BILIRUBIN,URINE NEG (NEG); CLARITY,URINE HAZY; COLOR,URINE YELLOW; GLUCOSE,URINE NEG (NEG); NITRITE,URINE NEG (NEG); SQUAMOUS EPITHELIAL CELL,UR MOD /LPF; UROBILINOGEN,URINE 0.2 mg/dL (0.2 mg/dL)
[2019-07-20 08:23] LABS: AMORPHOUS SEDIMENT,UR PRESENT /HPF; GRANULAR CASTS,URINE OCC /HPF; HYALINE CASTS, URINE FEW /HPF
[2019-07-20] MEDS ORDERED: PHEN-318 PO (08:43)
[2019-07-20] MEDS ORDERED: NITR100C62 PO (08:43)
[2019-07-20] MEDS ORDERED: HYDR-3165 PO (08:43)
--- NOTE | 2019-07-20 08:43 | PHYS DOC ---
Past History Past Medical History: A-Fib, High Cholesterol, UTI Additional Past Medical Histor: BACK PAIN Past Surgical History: No Surgical History Alcohol Use: None Drug Use: None General Adult EDM: Chief Complaint: LOWER EXT PAIN HPI: HPI: Patient is a 73-year-old female with chronic back pain who presents with pain in her back that radiates into her legs. She states it radiates to her left leg greater than right. She states it is primarily in the upper thigh region on the left and more in the pelvis on the right. She also complains of some suprapubic fullness, urinary urgency and urinary frequency. She denies any fever chills or sweats. She denies any bowel or bladder incontinence. She states the pain feels better if she sits with her legs elevated or NA straight chair. She had trouble getting comfortable last night. [] Review of Systems: Review of Systems: Constitutional: Denies fever or chills Eyes: Denies change in visual acuity HENT: Denies nasal congestion or sore throat Respiratory: Denies cough or shortness of breath Cardiovascular: Denies chest pain or edema GI: Denies abdominal pain, nausea, vomiting, bloody stools or diarrhea : Denies dysuria Musculoskeletal: Per HPI Integument: Denies rash Neurologic: Denies headache, focal weakness or sensory changes Endocrine: Denies polyuria or polydipsia Lymphatic: Denies swollen glands Psychiatric: Denies depression or anxiety Heart Score: Risk Factors: Risk Factors: DM, Current or recent (<one month) smoker, HTN, HLP, family history of CAD, obesity. Risk Scores: Score 0 - 3: 2.5% MACE over next 6 weeks - Discharge Home Score 4 - 6: 20.3% MACE over next 6 weeks - Admit for Clinical Observation Score 7 - 10: 72.7% MACE over next 6 weeks - Early Invasive Strategies Current Medications: Current Meds: Current Medications Medications (Trade) Dose Ordered Sig/Lon Start Time Stop Time Status Last Admin Dose Admin Ketorolac Tromethamine (Toradol 30mg Vial) 30 mg 1X ONCE 07/20/19 07:45 07/20/19 08:10 DC 07/20/19 08:03 30 MG Orphenadrine Citrate (Norflex) 60 mg 1X ONCE 07/20/19 07:45 07/20/19 08:10 DC 07/20/19 08:04 60 MG Sodium Chloride 1,000 ml @ 1,000 mls/hr 1X ONCE 07/20/19 07:45 07/20/19 08:44 07/20/19 08:03 1,000 MLS/HR Allergies: Allergies: Allergies Coded Allergies Type Severity Reaction Last Updated Verified No Known Drug Allergies 12/28/18 No Physical Exam: PE: Constitutional: Well developed, well nourished, no acute distress, non-toxic appearance. [] HENT: Normocephalic, atraumatic, bilateral external ears normal, oropharynx moist, no oral exudates, nose normal. [] Eyes: PERRLA, EOMI, conjunctiva normal, no discharge. [] Neck: Normal range of motion, no tenderness, supple, no stridor. [] Cardiovascular:Heart rate regular rhythm, no murmur [] Lungs & Thorax: Bilateral breath sounds clear to auscultation [] Abdomen: Bowel sounds normal, soft, no tenderness, no masses, no pulsatile magda s. [] Skin: Warm, dry, no erythema, no rash. [] Back: No tenderness, no CVA tenderness. [] Extremities: No tenderness, no cyanosis, no clubbing, ROM intact, no edema. [] Neurologic: Alert and oriented X 3, normal motor function, normal sensory function, no focal deficits noted. [] Psychologic: Affect normal, judgement normal, mood normal. [] Current Patient Data: Labs: Laboratory Tests Test 07/20/19 07:48 07/20/19 07:59 White Blood Count 8.7 x10^3/uL (4.0-11.0) Red Blood Count 4.71 x10^6/uL (3.50-5.40) Hemoglobin 14.0 g/dL (12.0-15.5) Hematocrit 42.2 % (36.0-47.0) Mean Corpuscular Volume 90 fL (79-100) Mean Corpuscular Hemoglobin 30 pg (25-35) Mean Corpuscular Hemoglobin Concent 33 g/dL (31-37) Red Cell Distribution Width 13.0 % (11.5-14.5) Platelet Count 306 x10^3/uL (140-400) Neutrophils (%) (Auto) 48 % (31-73) Lymphocytes (%) (Auto) 27 % (24-48) Monocytes (%) (Auto) 8 % (0-9) Eosinophils (%) (Auto) 16 % (0-3) H Basophils (%) (Auto) 0 % (0-3) Neutrophils # (Auto) 4.2 x10^3uL (1.8-7.7) Lymphocytes # (Auto) 2.3 x10^3/uL (1.0-4.8) Monocytes # (Auto) 0.7 x10^3/uL (0.0-1.1) Eosinophils # (Auto) 1.4 x10^3/uL (0.0-0.7) H Basophils # (Auto) 0.0 x10^3/uL (0.0-0.2) Sodium Level 139 mmol/L (136-145) Potassium Level 4.1 mmol/L (3.5-5.1) Chloride Level 103 mmol/L (98-107) Carbon Dioxide Level 25 mmol/L (21-32) Anion Gap 11 (6-14) Blood Urea Nitrogen 12 mg/dL (7-20) Creatinine 1.0 mg/dL (0.6-1.0) Estimated GFR (Cockcroft-Gault) 54.7 BUN/Creatinine Ratio 12 (6-20) Glucose Level 110 mg/dL (70-99) H Calcium Level 9.2 mg/dL (8.5-10.1) Total Bilirubin 0.3 mg/dL (0.2-1.0) Aspartate Amino Transferase (AST) 14 U/L (15-37) L Alanine Aminotransferase (ALT) 18 U/L (14-59) Alkaline Phosphatase 82 U/L (46-116) C-Reactive Protein 5.4 mg/L (0-3.3) H Total Protein 7.6 g/dL (6.4-8.2) Albumin 3.6 g/dL (3.4-5.0) Albumin/Globulin Ratio 0.9 (1.0-1.7) L Urine Collection Type Unknown Urine Color Yellow Urine Clarity Hazy Urine pH 5.5 Urine Specific Spelter 1.025 Urine Protein Neg (NEG-TRACE) Urine Glucose (UA) Neg mg/dL (NEG) Urine Ketones (Stick) Trace mg/dL (NEG) Urine Blood Neg (NEG) Urine Nitrite Neg (NEG) Urine Bilirubin Neg (NEG) Urine Urobilinogen Dipstick 0.2 mg/dL (0.2 mg/dL) Urine Leukocyte Esterase Trace (NEG) Urine RBC 1-2 /HPF (0-2) Urine WBC 1-4 /HPF (0-4) Urine Squamous Epithelial Cells Mod /LPF Urine Transitional Epithelial Cells Occ /LPF Urine Amorphous Sediment Present /HPF Urine Bacteria Few /HPF (0-FEW) Urine Hyaline Casts Few /HPF Urine Granular Casts Occ /HPF Urine Mucus Slight /LPF Vital Signs: Vital Signs Date Time Temp Pulse Resp B/P (MAP) Pulse Ox O2 Delivery O2 Flow Rate FiO2 07/20/19 07:23 97.8 80 18 135/77 (96) 97 Room Air EKG: EKG: [] Radiology/Procedures: Radiology/Procedures: []REASON: back pain radiating into legs PROCEDURE: LUMBAR SPINE 2-3V Lumbar spine 3 views. HISTORY: Back pain radiating into legs 3 views were taken lumbar spine. There is disc space narrowing at L5-S1. There is facet arthritis at L4-5 and L5-S1. There is minimal spondylolisthesis at L4-5. There is no acute fracture. There is moderate stool in the colon. IMPRESSION: 1. Degenerative facet arthritis in the lower lumbar spine. 2. Mild spondylolisthesis L4-5. 3. Disc space narrowing L5-S1. 4. No acute fracture. Course & Med Decision Making: Course & Med Decision Making Pertinent Labs and Imaging studies reviewed. (See chart for details) [ED course: Evaluation reveals a 73-year-old female with what sounds like lumbar radiculopathy. Her lumbar x-rays showed disc space narrowing and some arthritic changes. She was given IV normal saline, Toradol and Norflex during her stay in the department which did help alleviate her symptoms. Her urinalysis did not look terrible but I will go ahead and treat her just in case this could help make a difference for her. I have encouraged her to follow with her primary care physician as she will likely need an MRI scan to sort out exactly what is going on.] [employer] Disclaimer: [employer] Disclaimer: This electronic medical record was generated, in whole or in part, using a voice recognition dictation system. Departure Departure: Impression: Primary Impression: Lumbar radiculopathy, acute Additional Impression: Urinary tract infection Qualified Codes: N30.00 - Acute cystitis without hematuria Disposition: HOME/RESIDENCE PRIOR TO ADM Condition: STABLE Referrals: MONY GÓMEZ MD (PCP) Patient Instructions: Back Pain, Adult, Dysuria, Lumbosacral Radiculopathy Additional Instructions: You will need to follow with your primary care physician early this week to get an MRI scheduled. Return to the emergency department with any new or concerning symptoms Scripts Phenazopyridine Hcl (PYRIDIUM) 200 Mg Tablet 200 MG PO Q8HRS for urinary tract infection, #10 TAB Prov: ASHLEY LAIRD DO 07/20/19 Hydrocodone Bit/Acetaminophen (NORCO 5-325 TABLET) 1 Each Tablet 1-2 TAB PO Q4-6HRS for PAIN, #20 TAB Prov: ASHLEY LAIRD DO 07/20/19 Nitrofurantoin Monohyd/M-Cryst (MACROBID 100 MG CAPSULE) 100 Mg Capsule 1 CAP PO BID for UTI, #10 CAP Prov: ASHLEY LAIRD DO 07/20/19 ASHLEY LAIRD DO July 20, 2019 08:43
== END 2019-07-20 08:55 | disposition home or self-care (01) ==
LOC: ER 07:23
DX: M54.16 Radiculopathy, lumbar region (principal); N30.00 Acute cystitis without hematuria; G89.29 Other chronic pain; I48.91 Unspecified atrial fibrillation; E78.00 Pure hypercholesterolemia, unspecified; Z87.440 Personal history of urinary (tract) infections
CPT/HCPCS: 36415; 72100; 80053; 81001; 85025; 86140; 87086; 96372; 96374; 99284; J1885; J2360; J7030

== ENCOUNTER 2019-09-20 22:47 | Emergency (ER) | payer MEDICARE ==
[~2019-09-20] VITALS: Ht 157.5 cm; Wt 80.8 kg
[2019-09-20 22:47] VITALS: BP 163/69
[~2019-09-20 22:47] MED LIST changes: +HYDR-3165 PO; +NITR100C62 PO; +PHEN-318 PO
--- NOTE | 2019-09-20 23:06 | PHYS DOC ---
Past History Past Medical History: A-Fib, High Cholesterol, UTI Additional Past Medical Histor: BACK PAIN Past Surgical History: No Surgical History Alcohol Use: None Drug Use: None General Adult EDM: Chief Complaint: BACK PAIN - NO INJURY HPI: HPI: 74-year-old female presents with back pain and spasms. The patient has been pretty active the last couple of days. She has likely strained her back couple times. She reached for something up higher earlier today and felt a little bit of a pull. This evening, she started to have pain radiating from the middle of her back around to the sides. She also got sharp grabbing pain like a muscle spasm. It is bilateral. She has had this previously. She knows that she has degenerative change in her low back. She is tried Aleve at home, but the spasms are too painful. She denies fall or trauma. She denies fever chills. She has no other complaints at this time. Review of Systems: Review of Systems: Constitutional: Denies fever or chills Eyes: Denies change in visual acuity HENT: Denies nasal congestion or sore throat Respiratory: Denies cough or shortness of breath Cardiovascular: Denies chest pain or edema GI: Denies abdominal pain, nausea, vomiting, bloody stools or diarrhea : Denies dysuria Musculoskeletal: Low back pain Integument: Denies rash Neurologic: Denies headache, focal weakness or sensory changes Endocrine: Denies polyuria or polydipsia Lymphatic: Denies swollen glands Psychiatric: Denies depression or anxiety Heart Score: Risk Factors: Risk Factors: DM, Current or recent (<one month) smoker, HTN, HLP, family hi story of CAD, obesity. Risk Scores: Score 0 - 3: 2.5% MACE over next 6 weeks - Discharge Home Score 4 - 6: 20.3% MACE over next 6 weeks - Admit for Clinical Observation Score 7 - 10: 72.7% MACE over next 6 weeks - Early Invasive Strategies Current Medications: Current Meds: Current Medications Medications (Trade) Dose Ordered Sig/Lon Start Time Stop Time Status Last Admin Dose Admin Ketorolac Tromethamine (Toradol 30mg Vial) 30 mg 1X ONCE 09/20/19 23:30 09/20/19 23:31 Orphenadrine Citrate (Norflex) 60 mg 1X ONCE 09/20/19 23:30 09/20/19 23:31 Allergies: Allergies: Allergies Coded Allergies Type Severity Reaction Last Updated Verified No Known Drug Allergies 12/28/18 No Physical Exam: PE: Constitutional: Well developed, well nourished, no acute distress, non-toxic appearance. [] HENT: Normocephalic, atraumatic, bilateral external ears normal, oropharynx moist, no oral exudates, nose normal. [] Eyes: PERRLA, EOMI, conjunctiva normal, no discharge. [] Neck: Normal range of motion, no tenderness, supple, no stridor. [] Cardiovascular:Heart rate regular rhythm, no murmur [] Lungs & Thorax: Bilateral breath sounds clear to auscultation [] Abdomen: Bowel sounds normal, soft, no tenderness, no masses, no pulsatile masses. [] Skin: Warm, dry, no erythema, no rash. [] Back: Lumbar paraspinal muscle spasm and mild tenderness [] Extremities: No tenderness, no cyanosis, no clubbing, ROM intact, no edema. [] Neurologic: Alert and oriented X 3, normal motor function, normal sensory function, no focal deficits noted. [] Psychologic: Affect normal, judgement normal, mood normal. [] EKG: EKG: [] Radiology/Procedures: Radiology/Procedures: [] Course & Med Decision Making: Course & Med Decision Making Pertinent Labs and Imaging studies reviewed. (See chart for details) The patient appears to be having muscle spasm from tweaking her back. She has some degeneration and narrowing. She likely irritated a nerve and is getting reflex spasm. I will treat her with 30 mg of Toradol IM and 60 mg of Norflex IM. She is stable for discharge at this time. [] Dragon Disclaimer: Dragon Disclaimer: This electronic medical record was generated, in whole or in part, using a voice recognition dictation system. Departure Departure: Impression: Primary Impression: Lumbar paraspinal muscle spasm Disposition: HOME/RESIDENCE PRIOR TO ADM Condition: STABLE Referrals: MONY GÓMEZ MD (PCP) Patient Instructions: Low Back Strain with Rehab-SportsMed Justification of Admission: Justification of Admission: Justification of Admission Dx: N/A VANESSA JAY DO Sep 20, 2019 23:06
[2019-09-20] MEDS ORDERED: ORPHENADRINE CITRATE 60 MG/2 ML VIAL. IM ONE (23:30)
[2019-09-20] MEDS ORDERED: KETOROLAC 30 MG/ML VIAL. IM ONE (23:30)
== END 2019-09-20 23:30 | disposition home or self-care (01) ==
LOC: ER 22:47
DX: M62.830 Muscle spasm of back (principal); M54.5 Low back pain; I48.91 Unspecified atrial fibrillation; E78.00 Pure hypercholesterolemia, unspecified; Z87.440 Personal history of urinary (tract) infections
CPT/HCPCS: 96372; 99284; J1885; J2360

== ENCOUNTER 2020-10-05 20:37 | Emergency (ER) | payer MEDICARE ==
[~2020-10-05] VITALS: Ht 157.5 cm; Wt 75.0 kg
--- NOTE | 2020-10-05 22:20 | PHYS DOC ---
Past History Past Medical History: A-Fib, High Cholesterol, UTI Additional Past Medical Histor: A fib, not on meds Past Surgical History: No Surgical History, Hysterectomy, Tonsillectomy, Other Additional Past Surgical Histo: left rotator cuff Smoking: Non-smoker Alcohol Use: None Drug Use: None General Adult EDM: Chief Complaint: COVID-19 positive, now with nausea, vomiting and diarrhea HPI: HPI: 75-year-old female reports a 3 to 4-day history of nausea, vomiting, diarrhea and cramping abdominal pain, she says that she had been having some body ache, fevers over the past week or so, to her primary care doctor who diagnosed her with a possible bronchitis or sinus infection, put her on antibiotic, she says that the respiratory symptoms have resolved and she has no chest pain, shortness of breath, no headaches, now she states that her main symptom is cramping lower abdominal pain, vomiting, diarrhea, no blood in the stool, no urinary symptoms, chills complains of general body weakness. She has a history of atrial fibrill ation but she says she does not take any prescription medicines for this. Review of Systems: Review of Systems: General: no fevers , no chills, positive for general weakness/fatigue Eyes: no blurred vision, no diplopia Skin: no rashes Neck: no swelling, no neck stiffness, no neck pain Heme: no bleeding, no lymph node enlargement Ear/Nose/Throat: No sore throat, no runny nose, no hearing loss, no difficulty swallowing Cardiovascular: no Chest pain, no palpitations Respiratory: No dyspnea, no cough, no hemoptysis Gastrointestinal: Positive for nausea, vomiting, diarrhea, positive for abdominal pain, no blood in the stool Genitourinary: no dysuria, no hematuria Musculoskeletal: no back pain, no leg pain, no arm pain, no arthralgia Neurologic: no headaches, no dizziness, no focal numbness/tingling, no focal weakness Psych: no depression, no anxiety, no SI/HI *All review of systems are negative other than what is noted above Current Medications: Current Meds: Current Medications Medications (Trade) Dose Ordered Sig/Lon Start Time Stop Time Status Last Admin Dose Admin Dexamethasone Sodium Phosphate (Decadron) 10 mg 1X ONCE 10/05/20 22:30 10/05/20 22:31 Dicyclomine HCl (Bentyl) 20 mg 1X ONCE 10/05/20 22:30 10/05/20 22:31 Ondansetron HCl (Zofran) 4 mg 1X ONCE 10/05/20 22:30 10/05/20 22:31 Sodium Chloride 1,000 ml @ 1,000 mls/hr 1X ONCE 10/05/20 22:30 10/05/20 23:29 Allergies: Allergies: Allergies Coded Allergies Type Severity Reaction Last Updated Verified No Known Drug Allergies 10/05/20 No Physical Exam: PE: Gen-well appearing, no acute distress Head: Normocephalic/Atraumatic ENT: atraumatic, PERRLA, EOMI, oropharynx clear Neck: supple, full ROM/strength, no JVD, no nuchal rigidity Lungs: no distress, speaks in full sentences, Clear to auscultation bilaterally CV: reg rate, rhythm, no murmus/rubs/gallops, peripheral pulses equal in all extremities Abdomen: soft/nontender, no guarding/rebound tenderness, no rigidity, non distended, normoactive bowel sounds Musculoskeletal: full ROM/strength in all extremities, atraumatic, no swelling Back: full range of motion/strength Skin: intact, no rashes Lymph: no gross NASRIN Neuro: alert and oriented x 4, CN 2-12 grossly intact, Motor strength is 5/5 in all extremities, no focal sensory deficits, no focal ataxia, ambulatory with steady gait Psych: normal mood/affect Current Patient Data: Vital Signs: Vital Signs Date Time Temp Pulse Resp B/P (MAP) Pulse Ox O2 Delivery O2 Flow Rate FiO2 10/05/20 21:36 99.0 86 23 139/73 96 Room Air EKG: EKG: [] Twelve-lead EKG was performed at 10:49 PM: A. fib, rate is 90, computer is reading "T wave abnormality in inferior leads", I do believe that this is a nonischemic appearing EKG and the T waves I can see in the inferior leads so for that reason I disagree, the computer appears to be confusing this A. fib with T wave abnormalities Radiology/Procedures: Radiology/Procedures: [] Heart Score: C/O Chest Pain: No Risk Factors: Risk Factors: DM, Current or recent (<one month) smoker, HTN, HLP, family history of CAD, obesity. Risk Scores: Score 0 - 3: 2.5% MACE over next 6 weeks - Discharge Home Score 4 - 6: 20.3% MACE over next 6 weeks - Admit for Clinical Observation Score 7 - 10: 72.7% MACE over next 6 weeks - Early Invasive Strategies Course & Med Decision Making: Course & Med Decision Making Pertinent Labs and Imaging studies reviewed. (See chart for details) [] 75-year-old female reports a history of atrial fibrillation and presents to the ED after being diagnosed several days ago with COVID-19 complaining of nausea, vomiting and diarrhea. The pertinent differential diagnosis includes but not limited to COVID-19 infection which is the most likely etiology but also include but not limited to diverticulitis, colitis, C. difficile is on the differential specially since she been on the antibiotic, appears less likely, unlikely AAA, SBO, mesenteric ischemia, appendicitis, cholecystitis, unlikely any acute cardiopulmonary etiology and she has no respiratory complaints and a normal oxygen saturation. Plan at this time is check an EKG, labs, CT of the abdomen pelvis, will attempt to get a stool specimen for C. difficile testing, meantime we will treat her with some fluids, Bentyl, Zofran, will then reeval and reassess her in the midst of a work-up and determine the best course of action is a data becomes available Reevaluation at 1:14 AM: Feeling better, abdomen nontender, the work-up was negative and was consistent with COVID-19 infection, she is tolerating by mouth fluids, stable for discharge at this time Patient was seen in the ED for nausea, vomiting and diarrhea in the setting of COVID-19 infection and clinically improved, there is no apparent evidence of any emergency medical pathology at this time, patient was advised follow-up with their primary care provider /physician in the next 24-48 hours and to return to the ED before then if any new or worsening / concerning symptoms had developed. All questions and concerns were addressed at time of disposition Mega Disclaimer: Mega Disclaimer: This electronic medical record was generated, in whole or in part, using a voice recognition dictation system. Departure Departure: Impression: Primary Impression: COVID-19 Disposition: HOME / SELF CARE / HOMELESS Condition: IMPROVED Referrals: ROB RIVERO MD (PCP) 2 days Patient Instructions: Dehydration, Adult Additional Instructions: The good news is your test were okay, you have COVID-19 but no other concerning pathology, I recommend that you drink plenty of fluids, going to start you on some stomach and nausea medicine, the symptoms should resolve in a couple of days, please follow-up with your primary care provider/ In the next 48 hours, return to the nearest emergency room before then if any new or worsening/concerning symptoms develop Scripts Ondansetron (ONDANSETRON ODT) 4 Mg Tab.rapdis 1 TAB PO PRN Q6-8HRS for N/V, #16 TAB Prov: BALDOMERO WILKERSON MD 10/06/20 Dicyclomine Hcl (DICYCLOMINE HCL) 20 Mg Tablet 1 TAB PO TID for pain, #15 TAB 1 Refill Prov: BALDOMERO WILKERSON MD 10/06/20 BALDOMERO WILKERSON MD Oct 05, 2020 22:20
[2020-10-05] MEDS ORDERED: DICYCLOMINE HCL 20 MG TABLET PO ONE (22:30)
[2020-10-05] MEDS ORDERED: ONDANSETRON PF 4 MG/2 ML VIAL. IVP ONE (22:30)
[2020-10-05] MEDS ORDERED: IV NORMAL SALINE 1,000ML 1,000 ML IV ONE (22:30)
[2020-10-05] MEDS ORDERED: DEXAMETHASONE SOD PHOS 10 MG/ML VIAL. IV ONE (22:30)
[2020-10-05 22:42] LABS: BASO % 0 % (0-3); EOS % 0 % (0-3); HEMATOCRIT 40.6 % (36.0-47.0); HEMOGLOBIN 13.9 g/dL (12.0-15.5); LYMPH # 0.8 x10^3/uL (1.0-4.8); LYMPH % 9 % (24-48); MEAN CORPUSCULAR HEMOGLOBIN 30 pg (25-35); MEAN CORPUSCULAR HGB CONC 34 g/dL (31-37); MEAN CORPUSCULAR VOLUME 86 fL (79-100); MONO # 0.6 x10^3/uL (0.0-1.1); MONO % 7 % (0-9); NEUT # 6.9 x10^3uL (1.8-7.7); NEUT % 84 % (31-73); PLATELET COUNT 207 x10^3/uL (140-400); RED BLOOD COUNT 4.71 x10^6/uL (3.50-5.40); RED CELL DISTRIBUTION WIDTH 13.8 % (11.5-14.5); WHITE BLOOD COUNT 8.3 x10^3/uL (4.0-11.0)
[2020-10-05 22:50] LABS: CALCIUM 8.1 mg/dL (8.5-10.1); CREATININE 0.7 mg/dL (0.6-1.0); POTASSIUM 4.2 mmol/L (3.5-5.1)
[2020-10-05 22:56] LABS: ALBUMIN 2.9 g/dL (3.4-5.0); ALBUMIN/GLOBULIN RATIO 0.8 (1.0-1.7); TOTAL BILIRUBIN 0.3 mg/dL (0.2-1.0); TOTAL PROTEIN 6.5 g/dL (6.4-8.2)
--- NOTE | 2020-10-06 01:12 | RAD ---
EXAM: CT ABDOMEN/PELVIS WITHOUT CONTRAST. HISTORY: Abdominal pain, COVID-19. TECHNIQUE: Computed tomography of the abdomen and pelvis was performed without intravenous contrast. One or more of the following individualized dose reduction techniques were utilized for this examinat ion: 1. Automated exposure control. 2. Adjustment of the mA and/or kV according to patient size. 3. Use of iterative reconstruction technique. COMPARISON: None. FINDINGS: Lung windows through the visualized portions of the bases reveal multifocal infiltrates con sistent with atypical pneumonia. Bone windows reveal no suspicious lesions. There is grade 1 anteroli sthesis at L4-5. Degenerative disc disease is moderate to severe with endplate sclerosis at T11-12. The liver, gallbladder, pancreas, adrenal glands, spleen and kidneys are unremarkable without contras t. There are no pathologically enlarged lymph nodes. Sigmoid diverticulosis is severe. The appendix is not inflamed. There is no small bowel obstruction. There are changes of pelvic floor relaxation with a small cystocele. IMPRESSION: 1. Bibasilar infiltrates consistent with atypical pneumonia. 2. Pelvic floor relaxation with a small cystocele. Electronically signed by: Lisy Cruz MD (10/06/2020 1:09 AM) [facility]
--- NOTE | 2020-10-06 01:16 | EKG ---
[address] [address] Test Date: 2020-10-05 Test Time: 22:49:27 Pat Name: MANNY MARIE Department: Room: Gender: F [facility] Supervisor: FERNANDO : 1945 Requested By: BALDOMERO WILKERSON Order Number: [id number] Reading MD: Measurements Intervals [place] Rate: 90 P: RI: QRS: 66 QRSD: 86 T: 42 QT: 354 QTc: 437 Interpretive Statements IRREGULAR RHYTHM, NO P-WAVE FOUND T ABNORMALITY IN INFERIOR LEADS ABNORMAL ECG RI6.02 No previous ECG available for comparison
[2020-10-06] MEDS ORDERED: ONDA4TAB12 PO (01:17)
[2020-10-06] MEDS ORDERED: DICY20TA3 PO (01:17)
[2020-10-06 01:21] LABS: BACTERIA,URINE FEW /HPF (0-FEW); BILIRUBIN,URINE NEG (NEG); CLARITY,URINE CLEAR; COLOR,URINE YELLOW; GLUCOSE,URINE NEG (NEG); NITRITE,URINE NEG (NEG); RBC,URINE 0 /HPF (0-2); SQUAMOUS EPITHELIAL CELL,UR FEW /LPF; UROBILINOGEN,URINE 0.2 mg/dL (0.2 mg/dL)
[2020-10-06 01:30] VITALS: BP 123/56
== END 2020-10-06 02:30 | disposition home or self-care (01) ==
LOC: ER 20:37
DX: U07.1 COVID-19 (principal); I48.91 Unspecified atrial fibrillation; E78.00 Pure hypercholesterolemia, unspecified; Z87.440 Personal history of urinary (tract) infections
CPT/HCPCS: 74176; 80053; 81001; 83690; 85025; 87086; 93005; 96361; 96374; 96375; 99285; J1100; J2405; J7030